=== PATIENT | female | born 2000 | race Two or more races ===

== ENCOUNTER 2024-04-30 23:00 | Emergency (ER) | payer OTHER ==
[~2024-04-30] VITALS: Ht 170.2 cm; Wt 79.4 kg
[2024-04-30] MEDS ORDERED: ACETAMINOPHEN 500 MG GEL..CAP PO ONE (23:18)
[2024-04-30] MEDS ORDERED: GUAIFENESIN 200 MG/10 ML BLIST.PACK PO STA (23:26)
[2024-04-30] MEDS ORDERED: KETOROLAC TROMETHAMINE 60 MG VIAL IM STA (23:26)
[2024-04-30] MEDS ORDERED: CEFTRIAXONE SODIUM 1,000 MG VIAL IM STA (23:28)
[2024-04-30] MEDS ORDERED: KETOROLAC TROMETHAMINE 30 MG VIAL ONE (23:34)
[2024-04-30] MEDS ORDERED: GUAIFENESIN 200 MG/10 ML BLIST.PACK PO ONE (23:34)
[2024-04-30] MEDS ORDERED: CEFTRIAXONE SODIUM 1,000 MG VIAL ONE (23:34)
== END 2024-04-30 23:53 | disposition home or self-care (01) ==
LOC: ER 23:00
DX: J03.90 Acute tonsillitis, unspecified (principal)

== ENCOUNTER 2024-06-27 01:00 | Outpatient (CLI) | payer OTHER | END 2024-06-27 02:00 | disposition home or self-care (01) | LOC: PPH VACUNA 01:00 | PROVIDERS: ATTEND Emergency Medicine Pediatric Emergency Medicine | DX: Z23 Encounter for immunization (principal) ==

== ENCOUNTER 2024-12-16 23:01 | Emergency (ER) | payer OTHER ==
[~2024-12-16] VITALS: Ht 170.2 cm; Wt 79.4 kg
[2024-12-16] MEDS ORDERED: KETOROLAC TROMETHAMINE 60 MG VIAL IM ONE (23:15)
[2024-12-16] MEDS ORDERED: KETOROLAC TROMETHAMINE 30 MG VIAL ONE (23:17)
[2024-12-16] MEDS ORDERED: CETIRIZINE HCL 5MG/5ML BLIST.PACK PO ONE (23:20)
[2024-12-16] MEDS ORDERED: LORATADINE 10 MG TABLET PO ONE (23:30)
[2024-12-16 23:43] LABS: HEMATOCRIT 39.5 % (36.0-45.00); HEMOGLOBIN 13.3 g/dL (12.0-15.00); MEAN CELL VOLUME 87.5 fL (80.00-100.00); MEAN CORPUSCULAR HEMOGLOBIN 29.5 pg (27.00-32.0); MEAN CORPUSCULAR HGB CONC 33.7 g/dl (32.0-36.0); PLATELET COUNT 349 K/uL (150-450); RED BLOOD COUNT 4.52 M/uL (4.00-6.00); RED CELL DISTRIBUTION WIDTH 13.1 % (11.5-14.5)
[2024-12-16] MEDS ORDERED: ZYRTEC10 MG PO (23:58)
[2024-12-16] MEDS ORDERED: BUTALB-ACETAMI1 EAC2 PO (23:58)
== END 2024-12-17 00:05 | disposition home or self-care (01) ==
LOC: ER 23:01
PROVIDERS: General Practice
DX: J00 Acute nasopharyngitis [common cold] (principal); Z20.822 Contact with and (suspected) exposure to COVID-19

== ENCOUNTER 2025-07-06 15:35 | Outpatient (CLI) | payer OTHER ==
[~2025-07-06 15:35] MED LIST: BUTALB-ACETAMI1 EAC2 PO; ZYRTEC10 MG PO
== END 2025-07-06 15:45 | disposition home or self-care (01) ==
LOC: PPH VACUNA 15:35
PROVIDERS: ATTEND Emergency Medicine Pediatric Emergency Medicine
DX: Z23 Encounter for immunization (principal)